=== PATIENT | male | born 1960 | race Caucasian/White ===

== ENCOUNTER 2022-08-11 12:44 | Day surgery (SDC) | payer MEDICAID ==
[2022-08-06 16:44] LABS: BASOPHILS # (AUTO) 0.1 X10'3 (0-0.2); EOSINOPHILS # (AUTO) 0.4 X10'3 (0-0.9); LYMPHOCYTES # (AUTO) 2.6 X10'3 (1.1-4.8); LYMPHOCYTES % (AUTO) 34.5 % (21-51); MEAN CORPUSCULAR HEMOGLOBIN 32.2 PG (27.0-31.0); MEAN CORPUSCULAR VOLUME 94.6 FL (78-98); MONOCYTES # (AUTO) 0.8 X10'3 (0-0.9); MONOCYTES % (AUTO) 10.8 % (2-12); NEUTROPHILS # (AUTO) 3.6 X10'3 (1.8-7.7); NEUTROPHILS % (AUTO) 48.7 % (42-75); PRE OP HEMATOCRIT 42.8 % (42.0-52.0); PRE OP HEMOGLOBIN 14.6 g/dL (14.0-17.9); PRE OP PLATELET COUNT 287 X10'3 (140-440); RED BLOOD COUNT 4.53 X10'6 (4.70-6.10); RED CELL DISTRIBUTION WIDTH 13.3 % (11.5-14.5)
[2022-08-06 17:02] LABS: ALBUMIN 3.7 G/DL (3.4-5.0); ALBUMIN/GLOBULIN RATIO 1.1 (1.1-1.5); ALKALINE PHOSPHATASE 89 IU/L (46-116); BLOOD UREA NITROGEN 23 MG/DL (7-18); CHLORIDE 107 MMOL/L (99-107); CREATININE 0.96 MG/DL (0.60-1.10); PRE OP ALT 19 U/L (30-65); PRE OP ANION GAP 2 (8-16); PRE OP AST 20 U/L (10-37); PRE OP BILIRUB, TOTAL 0.9 MG/DL (0.0-1.0); PRE OP GLUCOSE 91 MG/DL (70-104); PRE OP SODIUM 141 MMOL/L (135-145); TOTAL PROTEIN 7.1 G/DL (6.4-8.2); eGFR 79 ML/MIN
[2022-08-11] VITALS (14 sets, daily range): BP systolic 86–133; BP diastolic 53–83
[~2022-08-11] VITALS: Ht 182.9 cm; Wt 82.4 kg
[~2022-08-11 12:44] MED LIST: NO HOME MEDS; cefazolin 2gm/D5W 100mL 100 ML IV ONE; famotidine 20mg tablet PO ONE; ringers solution, lacted 1,000 ML IV SCH
[2022-08-11] MEDS ORDERED: BUPIVAcaine/PF 2.5 mg/ml (0.25%) 30ml vial ONE (14:43)
[2022-08-11] MEDS ORDERED: LIDOcaine 1% 30ml preserv. free vial ONE (14:43)
[2022-08-11] MEDS ORDERED: midazolam 1 mg/ML 2ml injection ONE (14:52)
[2022-08-11] MEDS ORDERED: fentaNYL /PF 50mcg/ml 5ml ampule ONE (14:52)
[2022-08-11] MEDS ORDERED: rocuronium 10mg/ml inj IV ONE (15:02)
[2022-08-11] MEDS ORDERED: propofol inj 20 ML IV ONE (15:02)
[2022-08-11] MEDS ORDERED: LIDOcaine 2% (20mg/ml) 5ml vial ONE (15:02)
[2022-08-11] MEDS ORDERED: ondansetron/PF 4mg/2ml inj IV PRN (15:10)
[2022-08-11] MEDS ORDERED: ketorolac trometh. 30mg/ml inj. IV ONE (15:10)
[2022-08-11] MEDS ORDERED: meperidine/PF 25mg/ml syringe IV PRN ×3 (15:10)
[2022-08-11] MEDS ORDERED: ringers solution, lacted 1,000 ML IV SCH (15:10)
[2022-08-11] MEDS ORDERED: hydrALAZINE 20mg/ml inj. IV PRN (15:10)
[2022-08-11] MEDS ORDERED: proCHLORperazine 10 MG/2 ml inj IV PRN (15:10)
[2022-08-11] MEDS ORDERED: labetalol 20mg/4ml (5mg/ml) syringe IV PRN (15:10)
[2022-08-11] MEDS ORDERED: acetaminophen 1,000mg/100ml IV 100 ML IV PRN (15:10)
[2022-08-11] MEDS ORDERED: morphine 4 MG/ML inj SYRINge IV PRN (15:10)
[2022-08-11] MEDS ORDERED: morphine 2 MG/ML inj. syringe IV PRN (15:10)
[2022-08-11] MEDS ORDERED: ondansetron/PF 4mg/2ml inj ONE (16:07)
[2022-08-11] MEDS ORDERED: dexamethasone sod phosphate 4mg/ml inj. ONE (16:08)
[2022-08-11] MEDS ORDERED: glycopyrrolate 0.2mg/ml inj ONE (16:20)
[2022-08-11] MEDS ORDERED: neostigmine methylsulfate 1 MG/ML 10ml vial ONE (16:20)
--- NOTE | 2022-08-11 16:35 | NUR ---
PT ARRIVED TO RR VIA [facility]URGI[facility] ACCOMPANIED BY DR DAS- ANESTHESIA REPORT GIVEN, PT WAKING UP, DENIES PAIN, VSS, 3 BANDAIDS TO ABD-CDI, SCDS ON, PIV 20G-R HAND, NEURO INTACT
[2022-08-11] MEDS ORDERED: HYDROcodone/acetaminophen 5mg/325mg tablet PO PRN (16:50)
--- NOTE | 2022-08-11 18:45 | NUR ---
PT UP AND DRESSED, ABLE TO VOID, VSS, PAIN MINIMAL, GIVEN 1 NORCO FOR RIDE HOME, PIV D/CD-CANULA INTACT, 3 BANDAIDS-CDI, GIVEN D/C INSTRUCTIONS-ALL QUESTIONS ANSWERED, TAKEN VIA W/C TO [facility] FOR TRANSPORT HOME WITH ALL BELONGINGS.
== END 2022-08-11 18:45 | disposition home or self-care (01) ==
LOC: PAS 12:44
PROVIDERS: ATTEND Surgery
DX: K40.20 Bilateral inguinal hernia, without obstruction or gangrene, not specified as recurrent (principal); Z87.891 Personal history of nicotine dependence; Z98.890 Other specified postprocedural states; Z79.899 Other long term (current) drug therapy; Z72.89 Other problems related to lifestyle; Z80.1 Family history of malignant neoplasm of trachea, bronchus and lung; Z80.3 Family history of malignant neoplasm of breast
CPT/HCPCS: 36415; 49650; 80053; 82948; 85025; 93005; C1781; J0131; J1100; J1885; J2175; J2250; J2405; J2704; J2710; J3010; J3490; J7030; J7120; S2900; Z7506; Z7508; Z7512; A4215; A4618